=== PATIENT | female | born 1930 | race Caucasian/White ===

== ENCOUNTER 2017-05-12 06:57 | Day surgery (SDC) | payer MEDICARE, BC ==
[2017-05-12] MEDS ORDERED: Propofol 200 MG/20 ML SDV ONE (07:11)
[2017-05-12] MEDS ORDERED: fentaNYL 100 MCG/2 ML SDV ONE (07:11)
[2017-05-12] MEDS ORDERED: Sodium Chloride 0.9% 1,000 ML IV SCH (08:00)
[2017-05-12] MEDS ORDERED: Glycopyrrolate 0.2 MG/ML 2 ML SDV ONE (08:34)
[2017-05-12 11:02] VITALS: BP 135/62
--- NOTE | 2017-05-12 13:33 | PROC ---
DATE OF PROCEDURE: 05/12/2017 INDICATION: Kateryna is an 86-year-old female, who comes in for a colonoscopy. She has been losing weight significantly, cannot gain weight, and she is concerned. She does have a history of cancer of the breast. She has had some change in bowel habits. The risks and benefits were explained to her for the complete colonoscopy with possible biopsy and/or polypectomy. PROCEDURE IN DETAIL: The anesthesia was given by nurse irrigation pump installer. During procedure, used 100 mcg of fentanyl, no Versed was given, and 200 mg of propofol. With a gloved finger, the rectum was examined and there was no obvious pathology noted. The Olympus 180L scope was used. The tube was placed into the rectum and advanced under direct vision. We had a difficult time getting through the first part and the last part in the ascending colon. Multiple times were tried and finally, put on her back from the left lateral position, still unable to get into the cecum. Upon slow retraction of the tube, we noted a polyp at 40 cm. This was biopsied three times. The tube was slowly retracted, no obvious pathology noted in the rectum, and the tube was removed. The patient tolerated the procedure well. PREOPERATIVE DIAGNOSIS: Weight loss. POSTOPERATIVE DIAGNOSIS: Polyp at 40 cm. Biopsy report pending. Leon Narvaez MD /[id number]
== END 2017-05-12 11:20 | disposition home or self-care (01) ==
LOC: JP.SDS 06:57
PROVIDERS: ATTEND Internal Medicine
DX: Z12.11 Encounter for screening for malignant neoplasm of colon (principal); D12.6 Benign neoplasm of colon, unspecified; Z88.8 Allergy status to other drugs, medicaments and biological substances; I10 Essential (primary) hypertension; K21.9 Gastro-esophageal reflux disease without esophagitis; E03.9 Hypothyroidism, unspecified; E78.00 Pure hypercholesterolemia, unspecified; Z88.1 Allergy status to other antibiotic agents; Z88.2 Allergy status to sulfonamides
CPT/HCPCS: 45380; J2704; J3010; J7040; 88305; J3490

== ENCOUNTER 2017-08-30 09:04 | Inpatient (IN) | payer MEDICARE, BC ==
--- NOTE | 2017-08-30 10:01 | CR ---
Chest 2V HISTORY: Pneumonia. COMPARISON: Chest x-ray 08/11/2017. FINDINGS: Increased interstitial change in the perihilar regions as well as lung bases either represe nting edema or inflammatory process. Stable mild cardiomegaly. No acute congestive change or effusion . Surgical clips overlying the left chest. Impression: Increased interstitial change in the representing edema or inflammatory process. Recommend follow-up films to confirm improvement or resolution.
[2017-08-30] MEDS ORDERED: Ondansetron 4 MG Tab.DIS PO PRN (11:45)
[2017-08-30] MEDS ORDERED: Sodium Chloride 0.9% 10 ML Syringe FLUSH PRN (11:45)
[2017-08-30] MEDS ORDERED: Benzonatate 100 MG Cap PO PRN (11:54)
[2017-08-30] MEDS ORDERED: CA CARBONATE PO SCH (12:00)
[2017-08-30] MEDS ORDERED: OMEPRAZOLE MAGNESIUM 20 MG PO SCH (12:00)
[2017-08-30] MEDS ORDERED: Non-Formulary Medication 1 Each (Exemestane [Exemestane] 25 MG) PO SCH (12:00)
[2017-08-30] MEDS ORDERED: [UNRECOGNIZED DRUG - OTHER] PO SCH (12:00)
[2017-08-30] MEDS ORDERED: Non-Formulary Medication 1 Each (Potassium Chloride [Potassium Chloride] 10 MEQ) PO SCH (12:00)
[2017-08-30] MEDS ORDERED: VIT K PO SCH (12:00)
[2017-08-30] MEDS ORDERED: Rivaroxaban 15 MG Tab PO SCH (12:00)
[2017-08-30] MEDS ORDERED: Non-Formulary Medication 1 Each (Rosuvastatin Calcium [Crestor] 10 MG) PO SCH (12:00)
[2017-08-30] MEDS ORDERED: VITAMIN D3 PO SCH (12:00)
--- NOTE | 2017-08-30 12:09 | PCM.HP ---
H&P History of Present Illness - General Date of Service: 08/30/17 Admit Problem/Dx: Admission Diagnosis/Problem Admission Diagnosis/Problem Pneumonia Source of Information: Patient - History of Present Illness Initial Comments - Free Text/Narative: She started coughing yesterday and coughed all night. She has also had a low grade fever and shortness of breath She did not sleep last night as she was coughing and had severe fatigue. She also was wheezing with each deep breath. She has had respiratory problems in the past with a PE. She is so weak that she has a difficult time walking. Onset of Symptoms: Reports: Gradual Duration of Symptoms: Reports: Other (one day) Worsens with: Reports: Rest, Movement Associated Symptoms: Reports: Cough, Fever/Chills, Nausea/Vomiting, Weakness - Related Data Allergies/Adverse Reactions: Allergies Allergy/AdvReac Type Severity Reaction Status Date / Time azithromycin [From Zithromax] Allergy Unknown Cough Verified 05/12/17 07:48 benazepril Allergy Unknown Other Verified 05/12/17 07:48 hydrochlorothiazide Allergy Unknown Itching Verified 05/12/17 07:48 Sulfa (Sulfonamide Allergy Unknown Hives Verified 05/12/17 07:48 Antibiotics) Home Medications: Home Meds Ca Carbonate/Vitamin D3/Vit K [Citracal Soft Chew] 1 each PO BID 09/22/16 [ History] Digoxin [Digox] 125 mcg PO DAILY 09/22/16 [History] Exemestane 25 mg PO DAILY 09/22/16 [History] Levothyroxine Sodium 50 mcg PO DAILY 09/22/16 [History] Omeprazole Magnesium [Prilosec] 20 mg PO DAILY 09/22/16 [History] Potassium Chloride 10 meq PO DAILY 09/22/16 [History] Rosuvastatin Calcium [Crestor] 10 mg PO DAILY 09/22/16 [History] Vitamin E 400 unit PO BEDTIME 09/22/16 [History] Rivaroxaban [Xarelto] 20 mg PO DAILY 11/13/16 [History] Benzonatate 100 mg PO TID PRN 05/09/17 [History] Prolia 60 SQ ASDIRECTED 05/09/17 [History] Past Medical History HEENT History: Reports: Impaired Vision Other HEENT History: Corrected with glasses Cardiovascular History: Reports: Afib, Heart Murmur, High Cholesterol, Hypertension Respiratory History: Reports: Bronchitis, Recurrent, PE, Pneumonia, Recurrent, SOB Gastrointestinal History: Reports: Colon Polyp, GERD CUSTODIAN MANAGER History: Reports: , Other (See Below) Other OB/BYN History: hysterectomy, left ovarian cyst Musculoskeletal History: Reports: Osteoporosis Endocrine/Metabolic History: Reports: Hyperthyroidism, Osteoporosis Hematologic History: Reports: Anemia, B12 Deficiency, Blood Transfusion(s) Oncologic (Cancer) History: Reports: Breast Other Oncologic History: left lumpectomy - Infectious Disease History Infectious Disease History: Reports: Chicken Pox, Measles, Mumps - Past Surgical History HEENT Surgical History: Reports: Cataract Surgery, Tonsillectomy Other HEENT Surgeries/Procedures: Right eye GI Surgical History: Reports: Appendectomy, Colonoscopy Female Surgical History: Reports: Hysterectomy, Salpingo-Oophorectomy, Other (See Below) Other Female Surgeries/Procedures: left breast lumpectomy Endocrine Surgical History: Reports: None Oncologic Surgical History: Reports: Biopsy of Breast, Lumpectomy Other Oncologic Surgeries/Procedures: left breast Nov 2012 Social & Family History - Family History Family Medical History: Noncontributory Cardiac: Reports: Hypertension, [place] Other Cardiac Family History: father of [place] Oncologic: Reports: Pancreatic Other Oncologic Family History: sister - Tobacco Use Smoking Status *Q: Never Smoker Second Hand Smoke Exposure: No - Caffeine Use Caffeine Use: Reports: Coffee Other Caffeine Use: 3 cups per day - Recreational Drug Use Recreational Drug Use: No H&P Review of Systems - Review of Systems: Review Of Systems: See Below General: Reports: Fever, Chills, Weakness HEENT: Reports: Sinus Congestion Pulmonary: Reports: Shortness of Breath, Wheezing, Cough Cardiovascular: Reports: No Symptoms Gastrointestinal: Reports: No Symptoms Genitourinary: Reports: No Symptoms Musculoskeletal: Reports: No Symptoms Skin: Reports: No Symptoms Psychiatric: Reports: No Symptoms Neurological: Reports: No Symptoms Hematologic/Lymphatic: Reports: No Symptoms Immunologic: Reports: No Symptoms Exam - Exam Exam: See Below - Vital Signs Vital Signs: Last Vital Signs Temp 99.5 F 08/30/17 10:53 Pulse 80 08/30/17 10:53 Resp 20 08/30/17 10:53 BP 134/65 08/30/17 10:59 Pulse Ox 92 L 08/30/17 10:59 Weight: 113 lb - Exam General: Alert, Moderate Distress HEENT: PERRLA, Hearing Intact, Mucosa Moist & [place], Nares Patent, Normal Nasal Septum, Posterior Pharynx Clear, Conjunctiva Clear, EOMI, EACs Clear, TMs Clear Neck: Supple, Trachea Midline, 2 Lungs: Normal Respiratory Effort, Wheezing Cardiovascular: Regular Rate, Regular Rhythm GI/Abdominal Exam: Normal Bowel Sounds, Soft, Non-Tender, No Organomegaly, No Distention, No Abnormal Bruit, No Mass Back Exam: Normal Inspection Extremities: Normal Inspection Peripheral Pulses: 1+: Radial (L), Radial (R) Skin: Warm, Dry, Intact Neurological: Cranial Nerves Intact, Reflexes Equal Bilateral Neuro Extensive - Mental Status: Alert, Oriented x3, Normal Mood/Affect, Normal Cognition Neuro Extensive - Motor, Sensory, Reflexes: CN II-XII Intact, Normal Gait, Normal Reflexes DTR: 1+: Bicep (L), Bicep (R) Psychiatric: Alert, Normal Affect, Normal Mood *Q Meaningful Use (ADM) - VTE *Q VTE Criteria *Q: - Stroke *Q Stroke Criteria *Q: - AMI *Q AMI Criteria *Q: Problem List Initiated/Reviewed/Updated: Yes Orders Last 24hrs: Active Orders 24 hr Category Date Time Status Patient Status [ADT] Routine ADT 08/30/17 11:45 Ordered Ambulate [RC] QID Care 08/30/17 11:45 Ordered Ambulate [RC] QID Care 08/30/17 11:45 Ordered Height and Weight [RC] DAILY Care 08/30/17 11:45 Ordered Intake and Output [RC] QSHIFT Care 08/30/17 11:50 Ordered May Shower [RC] ASDIRECTED Care 08/30/17 11:45 Ordered Oxygen Therapy [RC] PRN Care 08/30/17 11:45 Ordered Up ad Lulu [RC] ASDIRECTED Care 08/30/17 11:45 Ordered Up to Chair [RC] QID Care 08/30/17 11:45 Ordered VTE/DVT Education [RC] Per Unit Routine Care 08/30/17 11:45 Ordered Vital Signs [RC] Q4H Care 08/30/17 11:45 Ordered Regular Diet [DIET] Diet 08/30/17 Lunch Ordered CBC WITH AUTO DIFF [HEME] AM Lab 08/31/17 05:11 Ordered CULTURE BLOOD [BC] Urgent Lab 08/30/17 11:53 Ordered CULTURE BLOOD [BC] Urgent Lab 08/30/17 11:53 Ordered CULTURE RESPIRATORY + SMEAR [RM] Stat Lab 08/30/17 11:45 Uncollected Benzonatate [Tessalon Perles] Med 08/30/17 11:54 Ordered 100 mg PO TID PRN Ca Carbonate/Vitamin D3/Vit K [Citracal Soft Chew] Med 08/30/17 12:00 Ordered 1 each PO BID Digoxin [Lanoxin] Med 08/30/17 12:00 Ordered 125 mcg PO DAILY Exemestane [Exemestane] Med 08/30/17 12:00 Ordered 25 mg PO DAILY FLU Vacc [id number](65YR UP)/PF [Fluzone High-Dose 2017- Med 08/31/17 10:00 Once 18] 180 mcg IM ONETIME ONE Levothyroxine [Synthroid] Med 08/30/17 12:00 Ordered 50 mcg PO DAILY Omeprazole Magnesium [Prilosec] Med 08/30/17 12:00 Ordered 20 mg PO DAILY Ondansetron [Zofran ODT] Med 08/30/17 11:45 Ordered 4 mg PO Q4H PRN Potassium Chloride [Potassium Chloride] Med 08/30/17 12:00 Ordered 10 meq PO DAILY Rivaroxaban [Xarelto] Med 08/30/17 12:00 Ordered 20 mg PO DAILY Rosuvastatin Calcium [Crestor] Med 08/30/17 12:00 Ordered 10 mg PO DAILY Sodium Chloride 0.9% [Saline Flush] Med 08/30/17 11:45 Ordered 10 ml FLUSH ASDIRECTED PRN Vitamin E [Vitamin E] Med 08/30/17 21:00 Ordered 400 unit PO BEDTIME Blood Culture x2 Reflex Set [OM.PC] Stat Oth 08/30/17 11:52 Ordered Saline Lock Insert [OM.PC] Routine Oth 08/30/17 11:45 Ordered Resuscitation Status Routine Resus Stat 08/30/17 11:45 Ordered Medication Orders Benzonatate (Tessalon Perles) 100 mg PO TID PRN PRN Reason: Cough Digoxin (Lanoxin) 125 mcg PO DAILY [facility] Levothyroxine Sodium (Synthroid) 50 mcg PO DAILY [facility] Non-Formulary Medication (Ca Carbonate/Vitamin D3/Vit K [Citracal Soft Chew]) 1 each PO BID [facility] Non-Formulary Medication (Exemestane [Exemestane]) 25 mg PO DAILY [facility] Non-Formulary Medication (Omeprazole Magnesium [Prilosec]) 20 mg PO DAILY [facility] Non-Formulary Medication (Potassium Chloride [Potassium Chloride]) 10 meq PO DAILY [facility] Non-Formulary Medication (Rosuvastatin Calcium [Crestor]) 10 mg PO DAILY [facility] Non-Formulary Medication (Vitamin E [Vitamin E]) 400 unit PO BEDTIME [facility] Ondansetron HCl (Zofran Odt) 4 mg PO Q4H PRN PRN Reason: Nausea able to take PO Rivaroxaban (Xarelto) 20 mg PO DAILY [facility] Sodium Chloride (Saline Flush) 10 ml FLUSH ASDIRECTED PRN PRN Reason: Keep Vein Open Assessment/Plan Comment:: Assessment/Plan: #1. Pneumonia: Have admitted her into the hospital and will start antibiotics. #2. Respiratory distress: Her O2 is low and have started her on oxygen. #3. History of breast Ca without mets. #4. History of PE: Continue with xarelto. #5. Hypothyroidism: Continue with medicine.
[2017-08-30] MEDS ORDERED: Rosuvastatin 10 MG Tab PO SCH (13:00)
[2017-08-30] MEDS: Potassium Chloride 10 MEQ Cap.ER PO SCH (13:39)
[2017-08-30] MEDS: Furosemide 20 MG Tab PO SCH (13:40)
[2017-08-30] MEDS: Calcium Carbonate/Vitamin D3 1500 MG-400 Units Tab PO SCH ×2 (13:41→22:10)
[2017-08-30] MEDS: Digoxin 125 MCG Tab PO SCH (13:45)
[2017-08-30] MEDS: cefTRIAXone 1 GM in Sodium Chloride 0.9% 50 ML IV SCH (13:49)
[2017-08-30] MEDS: Levothyroxine 50 MCG Tab PO SCH (13:56)
[2017-08-30] MEDS: Pantoprazole 40 MG Tab.CR PO SCH (13:56)
[2017-08-30] MEDS: Levofloxacin/Dextrose 5%-Water 750 MG in Premix Bag 1 BAG IV SCH (15:18)
[2017-08-30] MEDS: Spironolactone 25 MG Tab PO SCH (17:03)
[2017-08-30] MEDS: Metoprolol Tartrate 50 MG Tab PO SCH ×2 (17:03→22:09)
[2017-08-30] MEDS: Hydrochlorothiazide 12.5 MG Cap PO SCH (17:03)
[2017-08-30] MEDS: Rivaroxaban 10 MG Tab PO SCH (18:04)
[2017-08-30] MEDS: EXEMESTANE PO SCH (18:04)
[2017-08-30] MEDS ORDERED: Non-Formulary Medication 1 Each (Vitamin E [Vitamin E] 400 UNIT) PO SCH (21:00)
[2017-08-30] MEDS: Rosuvastatin 10 MG Tab PO SCH (22:10)
[2017-08-30] MEDS: amLODIPine 5 MG Tab PO SCH (22:11)
[2017-08-30] MEDS: Vitamin E (dl-alpha-tocopherol acetate) 400 Unit Cap PO SCH (22:12)
[2017-08-31] MEDS: Levothyroxine 50 MCG Tab PO SCH (07:28)
[2017-08-31] MEDS: Pantoprazole 40 MG Tab.CR PO SCH (07:35)
[2017-08-31] MEDS: Metoprolol Tartrate 50 MG Tab PO SCH (09:35)
[2017-08-31] MEDS: Furosemide 20 MG Tab PO SCH (09:36)
[2017-08-31] MEDS: EXEMESTANE PO SCH (09:38)
[2017-08-31] MEDS: Calcium Carbonate/Vitamin D3 1500 MG-400 Units Tab PO SCH ×2 (09:40→21:31)
[2017-08-31] MEDS: Potassium Chloride 10 MEQ Cap.ER PO SCH (09:40)
[2017-08-31] MEDS ORDERED: FLU Vacc TS 2017-18 (65yr UP)/PF 180 MCG/0.5 ML Syringe IM ONE (10:00)
--- NOTE | 2017-08-31 11:05 | PCM.PN ---
- General Info Date of Service: 08/31/17 Functional Status: Reports: Pain Controlled - Review of Systems General: Reports: Weakness HEENT: Reports: No Symptoms Pulmonary: Reports: Shortness of Breath, Cough Cardiovascular: Reports: No Symptoms Gastrointestinal: Reports: No Symptoms Genitourinary: Reports: No Symptoms Musculoskeletal: Reports: No Symptoms Skin: Reports: No Symptoms Neurological: Reports: No Symptoms Psychiatric: Reports: No Symptoms - Patient Data Vitals - Most Recent: Last Vital Signs Temp 98.1 F 08/31/17 07:09 Pulse 45 L 08/31/17 09:35 Resp 20 08/31/17 07:09 BP 104/52 L 08/31/17 09:35 Pulse Ox 100 08/31/17 07:09 Weight - Most Recent: 119 lb 9.824 oz I&O - Last 24 Hours: Intake & Output 08/30/17 08/31/17 08/31/17 22:59 06:59 14:59 Intake Total 390 360 Output Total 600 Balance -210 360 Lab Results Last 24 Hours: Laboratory Results - last 24 hr 08/31/17 Range/Units 05:45 WBC 6.8 (4.5-11.0) K/uL RBC 4.03 (3.30-5.50) M/uL Hgb 10.3 L D (12.0-15.0) g/dL Hct 33.4 L (36.0-48.0) % MCV 83 (80-98) fL MCH 26 L (27-31) pg MCHC 31 L (32-36) % Plt Count 149 L (150-400) K/uL Neut % (Auto) 78 H (36-66) % Lymph % (Auto) 11 L (24-44) % Weber % (Auto) 9 H (2-6) % Eos % (Auto) 1 L (2-4) % Baso % (Auto) 1 (0-1) % Med Orders - Current: Current Medications Amlodipine Besylate (Norvasc) 5 mg PO BEDTIME [facility] Last Admin: 08/30/17 22:11 Dose: 5 mg Benzonatate (Tessalon Perles) 100 mg PO TID PRN PRN Reason: Cough Calcium Carbonate (Caltrate 600+D 1500 Mg-400 Units) 1 tab PO BID [facility] Last Admin: 08/31/17 09:40 Dose: 1 tab Digoxin (Lanoxin) 125 mcg PO DAILY@1300 [facility] Last Admin: 08/30/17 13:45 Dose: 125 mcg Furosemide (Lasix) 20 mg PO DAILY [facility] Last Admin: 08/31/17 09:36 Dose: 20 mg Hydrochlorothiazide (Hydrochlorothiazide) 12.5 mg PO DAILY [facility] Last Admin: 08/30/17 17:03 Dose: Not Given Ceftriaxone Sodium 1 gm/ (Sodium Chloride) 50 mls @ 100 mls/hr IV Q24H [facility] Last Admin: 08/30/17 13:49 Dose: 100 mls/hr Levofloxacin/Dextrose 750 mg/ (Premix) 150 mls @ 100 mls/hr IV Q48H [facility] Last Admin: 08/30/17 15:18 Dose: 100 mls/hr Levothyroxine Sodium (Synthroid) 50 mcg PO ACBREAKFAST [facility] Last Admin: 08/31/17 07:28 Dose: 50 mcg Ondansetron HCl (Zofran Odt) 4 mg PO Q4H PRN PRN Reason: Nausea able to take PO Pantoprazole Sodium (Protonix) 40 mg PO ACBREAKFAST [facility] Last Admin: 08/31/17 07:35 Dose: 40 mg Exemestane 5mg (Ptom ()) 0 each PO DAILY [facility] Last Admin: 08/31/17 09:38 Dose: 1 each Potassium Chloride (Potassium Chloride) 10 meq PO DAILY [facility] Last Admin: 08/31/17 09:40 Dose: 10 meq Rivaroxaban (Xarelto) 20 mg PO WITHDINNER [facility] Last Admin: 08/30/17 18:04 Dose: 20 mg Rosuvastatin Calcium (Crestor) 10 mg PO BEDTIME [facility] Last Admin: 08/30/17 22:10 Dose: 10 mg Sodium Chloride (Saline Flush) 10 ml FLUSH ASDIRECTED PRN PRN Reason: Keep Vein Open Spironolactone (Aldactone) 12.5 mg PO DAILY [facility] Last Admin: 08/30/17 17:03 Dose: Not Given Vitamin E (Vitamin E) 400 units PO BEDTIME [facility] Last Admin: 08/30/17 22:12 Dose: 400 units Discontinued Medications Metoprolol Tartrate (Lopressor) 50 mg PO BID [facility] Last Admin: 08/31/17 09:35 Dose: 50 mg Rosuvastatin Calcium (Crestor) 10 mg PO DAILY [facility] Last Admin: 08/30/17 16:57 Dose: Not Given - Exam General: Alert, Oriented HEENT: Pupils Equal, Pupils Reactive, EOMI, Mucous Membr. Moist/[place] Neck: Supple Lungs: Clear to Auscultation, Normal Respiratory Effort Cardiovascular: Regular Rate, Regular Rhythm GI/Abdominal Exam: Normal Bowel Sounds, Soft, Non-Tender, No Organomegaly, No Distention, No Abnormal Bruit, No Mass, Pelvis Stable Back Exam: Normal Inspection, Full Range of Motion Extremities: Normal Inspection, Normal Range of Motion, Non-Tender, No Pedal Edema, Normal Capillary Refill Peripheral Pulses: 1+: Radial (L), Radial (R) Psy/Mental Status: Alert, Normal Affect, Normal Mood - Problem List Review Problem List Initiated/Reviewed/Updated: Yes - My Orders Last 24 Hours: My Active Orders 08/30/17 11:45 Patient Status [ADT] Routine Ambulate [RC] QID Height and Weight [RC] DAILY May Shower [RC] ASDIRECTED Oxygen Therapy [RC] PRN Up ad Lulu [RC] ASDIRECTED Up to Chair [RC] QID VTE/DVT Education [RC] Per Unit Routine Vital Signs [RC] Q4H CULTURE RESPIRATORY + SMEAR [RM] Stat Ondansetron [Zofran ODT] 4 mg PO Q4H PRN Sodium Chloride 0.9% [Saline Flush] 10 ml FLUSH ASDIRECTED PRN Saline Lock Insert [OM.PC] Routine Resuscitation Status Routine 08/30/17 11:50 Intake and Output [RC] QSHIFT 08/30/17 11:52 Blood Culture x2 Reflex Set [OM.PC] Stat 08/30/17 11:54 Benzonatate [Tessalon Perles] 100 mg PO TID PRN 08/30/17 12:00 Levothyroxine [Synthroid] 50 mcg PO ACBREAKFAST 08/30/17 12:08 CULTURE BLOOD [BC] Urgent 08/30/17 12:12 CULTURE BLOOD [BC] Urgent 08/30/17 13:00 Calcium Carbonate/Vitamin D3 [Caltrate 600+D 1500 MG-400 Units] 1 tab PO BID Digoxin [Lanoxin] 125 mcg PO DAILY@1300 Pantoprazole [ProTONIX] 40 mg PO ACBREAKFAST Potassium Chloride 10 meq PO DAILY cefTRIAXone [Rocephin] 1 gm Sodium Chloride 0.9% [Normal Saline] 50 ml IV Q24H 08/30/17 13:21 RT Acapella [RESPCARE] Routine 08/30/17 13:30 Furosemide [Lasix] 20 mg PO DAILY 08/30/17 14:00 Hydrochlorothiazide 12.5 mg PO DAILY Levofloxacin/Dextrose 5%-Water [Levaquin in D5W 750 MG/150 ML] 750 mg Premix Bag 1 bag IV Q48H Spironolactone [Aldactone] 12.5 mg PO DAILY 08/30/17 17:00 Patient's Own Medication [Ptom] 0 each PO DAILY Rivaroxaban [Xarelto] 20 mg PO WITHDINNER 08/30/17 21:00 Rosuvastatin [Crestor] 10 mg PO BEDTIME Vitamin E (dl, acetate) [Vitamin E] 400 units PO BEDTIME amLODIPine [Norvasc] 5 mg PO BEDTIME 08/30/17 Lunch Regular Diet [DIET] - Plan Plan:: Assessment/Plan: #1. Pneumonia: Improving. [place] do a repeat chest x-ray tomorrow. #2. Respiratory distress: Improved with osygen #3. History of breast Ca without mets. #4. History of PE: Continue with xarelto. #5. Hypothyroidism: Continue with medicine. #6. Hypotension: Have stopped Metoprolol.
[2017-08-31] MEDS: Hydrochlorothiazide 12.5 MG Cap PO SCH (12:12)
[2017-08-31] MEDS: Spironolactone 25 MG Tab PO SCH (12:12)
[2017-08-31] MEDS: Digoxin 125 MCG Tab PO SCH (13:29)
[2017-08-31] MEDS: cefTRIAXone 1 GM in Sodium Chloride 0.9% 50 ML IV SCH (13:35)
[2017-08-31] MEDS: Rivaroxaban 10 MG Tab PO SCH (17:51)
[2017-08-31] MEDS: Rosuvastatin 10 MG Tab PO SCH (21:29)
[2017-08-31] MEDS: Vitamin E (dl-alpha-tocopherol acetate) 400 Unit Cap PO SCH (21:30)
[2017-08-31] MEDS: amLODIPine 5 MG Tab PO SCH (21:31)
[2017-09-01] MEDS: Pantoprazole 40 MG Tab.CR PO SCH (07:38)
[2017-09-01] MEDS: Levothyroxine 50 MCG Tab PO SCH (07:38)
[2017-09-01] MEDS: EXEMESTANE PO SCH (09:09)
[2017-09-01] MEDS: Potassium Chloride 10 MEQ Cap.ER PO SCH (09:10)
[2017-09-01] MEDS: Spironolactone 25 MG Tab PO SCH (09:10)
[2017-09-01] MEDS: Hydrochlorothiazide 12.5 MG Cap PO SCH (09:10)
[2017-09-01] MEDS: Calcium Carbonate/Vitamin D3 1500 MG-400 Units Tab PO SCH ×2 (09:10→20:38)
[2017-09-01] MEDS: Furosemide 20 MG Tab PO SCH (09:10)
--- NOTE | 2017-09-01 09:29 | PCM.PN ---
- General Info Date of Service: 09/01/17 - Review of Systems General: Reports: Weakness HEENT: Reports: No Symptoms Pulmonary: Reports: Cough Cardiovascular: Reports: No Symptoms Gastrointestinal: Reports: No Symptoms Genitourinary: Reports: No Symptoms Musculoskeletal: Reports: No Symptoms Skin: Reports: No Symptoms Neurological: Reports: No Symptoms Psychiatric: Reports: No Symptoms - Patient Data Vitals - Most Recent: Last Vital Signs Temp 97.4 F 09/01/17 07:21 Pulse 67 09/01/17 07:21 Resp 16 09/01/17 07:21 BP 132/53 L 09/01/17 07:21 Pulse Ox 92 L 09/01/17 07:21 Weight - Most Recent: 109 lb I&O - Last 24 Hours: Intake & Output 08/31/17 09/01/17 09/01/17 22:59 06:59 14:59 Intake Total 240 1040 Output Total 250 300 Balance -10 740 [facility] Results Last 24 Hours: Microbiology 08/30/17 12:08 Aerobic Blood Culture - Preliminary Blood - Arm, Right NO GROWTH AFTER 1 DAY Anaerobic Blood Culture - Preliminary NO GROWTH AFTER 1 DAY 08/30/17 12:12 Aerobic Blood Culture - Preliminary Blood - Venous NO GROWTH AFTER 1 DAY Anaerobic Blood Culture - Preliminary NO GROWTH AFTER 1 DAY Med Orders - Current: Current Medications Amlodipine Besylate (Norvasc) 5 mg PO BEDTIME [facility] Last Admin: 08/31/17 21:31 Dose: Not Given Benzonatate (Tessalon Perles) 100 mg PO TID PRN PRN Reason: Cough Calcium Carbonate (Caltrate 600+D 1500 Mg-400 Units) 1 tab PO BID [facility] Last Admin: 09/01/17 09:10 Dose: 1 tab Digoxin (Lanoxin) 125 mcg PO DAILY@1300 [facility] Last Admin: 08/31/17 13:29 Dose: Not Given Furosemide (Lasix) 20 mg PO DAILY [facility] Last Admin: 09/01/17 09:10 Dose: 20 mg Hydrochlorothiazide (Hydrochlorothiazide) 12.5 mg PO DAILY [facility] Last Admin: 09/01/17 09:10 Dose: 12.5 mg Ceftriaxone Sodium 1 gm/ (Sodium Chloride) 50 mls @ 100 mls/hr IV Q24H [facility] Last Admin: 08/31/17 13:35 Dose: 100 mls/hr Levofloxacin/Dextrose 750 mg/ (Premix) 150 mls @ 100 mls/hr IV Q48H [facility] Last Admin: 08/30/17 15:18 Dose: 100 mls/hr Levothyroxine Sodium (Synthroid) 50 mcg PO ACBREAKFAST [facility] Last Admin: 09/01/17 07:38 Dose: 50 mcg Ondansetron HCl (Zofran Odt) 4 mg PO Q4H PRN PRN Reason: Nausea able to take PO Pantoprazole Sodium (Protonix) 40 mg PO ACBREAKFAST [facility] Last Admin: 09/01/17 07:38 Dose: 40 mg Exemestane 5mg (Ptom ()) 0 each PO DAILY [facility] Last Admin: 09/01/17 09:09 Dose: 1 each Potassium Chloride (Potassium Chloride) 10 meq PO DAILY [facility] Last Admin: 09/01/17 09:10 Dose: 10 meq Rivaroxaban (Xarelto) 20 mg PO WITHDINNER [facility] Last Admin: 08/31/17 17:51 Dose: 20 mg Rosuvastatin Calcium (Crestor) 10 mg PO BEDTIME [facility] Last Admin: 08/31/17 21:29 Dose: 10 mg Sodium Chloride (Saline Flush) 10 ml FLUSH ASDIRECTED PRN PRN Reason: Keep Vein Open Last Admin: 08/31/17 13:30 Dose: 10 ml Spironolactone (Aldactone) 12.5 mg PO DAILY [facility] Last Admin: 09/01/17 09:10 Dose: 12.5 mg Vitamin E (Vitamin E) 400 units PO BEDTIME [facility] Last Admin: 08/31/17 21:30 Dose: 400 units Discontinued Medications Metoprolol Tartrate (Lopressor) 50 mg PO BID [facility] Last Admin: 08/31/17 09:35 Dose: 50 mg Rosuvastatin Calcium (Crestor) 10 mg PO DAILY [facility] Last Admin: 08/30/17 16:57 Dose: Not Given - Exam General: Alert, Oriented Lungs: Crackles, Wheezing GI/Abdominal Exam: Normal Bowel Sounds, Soft, Non-Tender, No Organomegaly, No Distention, No Abnormal Bruit, No Mass, Pelvis Stable Extremities: Normal Inspection, Normal Range of Motion, Non-Tender, No Pedal Edema, Normal Capillary Refill Peripheral Pulses: 1+: Radial (L), Radial (R) Skin: Warm, Dry, Intact Psy/Mental Status: Alert, Normal Affect, Normal Mood - Problem List Review Problem List Initiated/Reviewed/Updated: Yes - My Orders Last 24 Hours: My Active Orders 09/02/17 05:11 BASIC METABOLIC PANEL,BMP [CHEM] Routine CBC WITH AUTO DIFF [HEME] Routine 09/02/17 08:11 CXR [Chest 2V] [CR] Routine - Plan Plan:: Assessment/Plan: #1. Pneumonia: Improving. Chest x-ray tomorrow. #2. Respiratory distress: Improved with oxygen O2 sat 92% on room air. #3. History of breast Ca without mets. #4. History of PE: Continue with xarelto. #5. Hypothyroidism: Continue with medicine. #6. Hypotension: Have stopped Metoprolol. Also held Amlodipine yesterday evening as BP was low.
[2017-09-01] MEDS: cefTRIAXone 1 GM in Sodium Chloride 0.9% 50 ML IV SCH (13:13)
[2017-09-01] MEDS: Digoxin 125 MCG Tab PO SCH (13:21)
[2017-09-01] MEDS: Levofloxacin/Dextrose 5%-Water 750 MG in Premix Bag 1 BAG IV SCH (14:50)
[2017-09-01] MEDS: Rivaroxaban 10 MG Tab PO SCH (16:40)
[2017-09-01] MEDS: amLODIPine 5 MG Tab PO SCH (20:38)
[2017-09-01] MEDS: Vitamin E (dl-alpha-tocopherol acetate) 400 Unit Cap PO SCH (20:38)
[2017-09-01] MEDS: Rosuvastatin 10 MG Tab PO SCH (20:38)
[2017-09-02] MEDS: Levothyroxine 50 MCG Tab PO SCH (07:27)
[2017-09-02] MEDS: Pantoprazole 40 MG Tab.CR PO SCH (07:27)
--- NOTE | 2017-09-02 09:08 | CR ---
Chest 2V HISTORY: pneumonia FINDINGS: Interstitial edema/infiltrates have resolved since the exam of 08/30/2017. Lungs now appear clear and normally aerated. Cardiomediastinal silhouette is within normal limits. Atherosclerotic aor ta is redemonstrated. No vascular redistribution or pleural fluid is seen. Surgical clips overlie the left mid chest anteriorly. IMPRESSION: Interval resolution of pulmonary infiltrates/edema. No acute chest abnormality is identif ied on today's exam.
[2017-09-02] MEDS: Spironolactone 25 MG Tab PO SCH (09:18)
[2017-09-02] MEDS: Furosemide 20 MG Tab PO SCH (09:20)
[2017-09-02] MEDS: Calcium Carbonate/Vitamin D3 1500 MG-400 Units Tab PO SCH (09:20)
[2017-09-02] MEDS: Hydrochlorothiazide 12.5 MG Cap PO SCH (09:20)
[2017-09-02] MEDS: Potassium Chloride 10 MEQ Cap.ER PO SCH (09:21)
[2017-09-02] MEDS: EXEMESTANE PO SCH (09:21)
[2017-09-02] MEDS ORDERED: Potassium Chloride 20 MEQ Tab.ER PO ONE (10:00)
[2017-09-02 11:07] VITALS: BP 121/65
--- NOTE | 2017-09-02 11:43 | PCM.PN ---
- General Info Date of Service: 09/02/17 Functional Status: Reports: Pain Controlled - Review of Systems General: Reports: No Symptoms HEENT: Reports: No Symptoms Pulmonary: Reports: No Symptoms Cardiovascular: Reports: No Symptoms Gastrointestinal: Reports: No Symptoms Musculoskeletal: Reports: No Symptoms Neurological: Reports: No Symptoms Psychiatric: Reports: No Symptoms - Patient Data Vitals - Most Recent: Last Vital Signs Temp 98.8 F 09/02/17 11:05 Pulse 93 09/02/17 11:05 Resp 19 09/02/17 11:05 BP 121/65 09/02/17 11:05 Pulse Ox 96 09/02/17 11:05 Weight - Most Recent: 106 lb 4.8 oz I&O - Last 24 Hours: Intake & Output 09/01/17 09/02/17 09/02/17 22:59 06:59 14:59 Intake Total 150 Output Total 1200 650 250 Balance -1200 -650 -100 Lab Results Last 24 Hours: Laboratory Results - last 24 hr 09/02/17 09/02/17 Range/Units 05:36 05:36 WBC 4.7 (4.5-11.0) K/uL RBC 4.66 (3.30-5.50) M/uL Hgb 12.0 (12.0-15.0) g/dL Hct 38.4 (36.0-48.0) % MCV 82 (80-98) fL MCH 26 L (27-31) pg MCHC 31 L (32-36) % Plt Count 188 (150-400) K/uL Neut % (Auto) 54 (36-66) % Lymph % (Auto) 31 (24-44) % [place] % (Auto) 9 H (2-6) % Eos % (Auto) 5 H (2-4) % Baso % (Auto) 2 H (0-1) % Sodium 138 L (140-148) mmol/L Potassium 3.2 L (3.6-5.2) mmol/L Chloride 100 (100-108) mmol/L Carbon Dioxide 30 (21-32) mmol/L Anion Gap 11.2 (5.0-14.0) mmol/L BUN 17 (7-18) mg/dL Creatinine 0.9 (0.6-1.0) mg/dL Est Cr Clr Drug Dosing 34.15 mL/min Estimated GFR (MDRD) 59 L (>60) Glucose 98 (74-106) mg/dL Calcium 9.4 (8.5-10.1) mg/dL [place]ius Results Last 24 Hours: Microbiology 08/30/17 12:08 Aerobic Blood Culture - Preliminary Blood - Arm, Right NO GROWTH AFTER 2 DAYS Anaerobic Blood Culture - Preliminary NO GROWTH AFTER 2 DAYS 08/30/17 12:12 Aerobic Blood Culture - Preliminary Blood - Venous NO GROWTH AFTER 2 DAYS Anaerobic Blood Culture - Preliminary NO GROWTH AFTER 2 DAYS Med Orders - Current: Current Medications Amlodipine Besylate (Norvasc) 5 mg PO BEDTIME [facility] Last Admin: 09/01/17 20:38 Dose: 5 mg Benzonatate (Tessalon Perles) 100 mg PO TID PRN PRN Reason: Cough Calcium Carbonate (Caltrate 600+D 1500 Mg-400 Units) 1 tab PO BID [facility] Last Admin: 09/02/17 09:20 Dose: 1 tab Digoxin (Lanoxin) 125 mcg PO DAILY@1300 [facility] Last Admin: 09/01/17 13:21 Dose: 125 mcg Furosemide (Lasix) 20 mg PO DAILY [facility] Last Admin: 09/02/17 09:20 Dose: 20 mg Hydrochlorothiazide (Hydrochlorothiazide) 12.5 mg PO DAILY [facility] Last Admin: 09/02/17 09:20 Dose: 12.5 mg Ceftriaxone Sodium 1 gm/ (Sodium Chloride) 50 mls @ 100 mls/hr IV Q24H [facility] Last Admin: 09/01/17 13:13 Dose: 100 mls/hr Levofloxacin/Dextrose 750 mg/ (Premix) 150 mls @ 100 mls/hr IV Q48H [facility] Last Admin: 09/01/17 14:50 Dose: 100 mls/hr Levothyroxine Sodium (Synthroid) 50 mcg PO ACBREAKFAST [facility] Last Admin: 09/02/17 07:27 Dose: 50 mcg Ondansetron HCl (Zofran Odt) 4 mg PO Q4H PRN PRN Reason: Nausea able to take PO Pantoprazole Sodium (Protonix) 40 mg PO ACBREAKFAST [facility] Last Admin: 09/02/17 07:27 Dose: 40 mg Exemestane 5mg (Ptom ()) 0 each PO DAILY [facility] Last Admin: 09/02/17 09:21 Dose: 1 each Potassium Chloride (Potassium Chloride) 10 meq PO DAILY [facility] Last Admin: 10/06/17 09:21 Dose: 10 meq Rivaroxaban (Xarelto) 20 mg PO WITHDINNER [facility] Last Admin: 09/01/17 16:40 Dose: 20 mg Rosuvastatin Calcium (Crestor) 10 mg PO BEDTIME [facility] Last Admin: 09/01/17 20:38 Dose: 10 mg Sodium Chloride (Saline Flush) 10 ml FLUSH ASDIRECTED PRN PRN Reason: Keep Vein Open Last Admin: 08/31/17 13:30 Dose: 10 ml Spironolactone (Aldactone) 12.5 mg PO DAILY [facility] Last Admin: 09/02/17 09:18 Dose: 12.5 mg Vitamin E (Vitamin E) 400 units PO BEDTIME [facility] Last Admin: 09/01/17 20:38 Dose: 400 units Discontinued Medications Metoprolol Tartrate (Lopressor) 50 mg PO BID [facility] Last Admin: 08/31/17 09:35 Dose: 50 mg Potassium Chloride (Klor-Con M20) 40 meq PO ONETIME ONE Stop: 09/02/17 10:01 Last Admin: 09/02/17 11:30 Dose: 40 meq Rosuvastatin Calcium (Crestor) 10 mg PO DAILY [facility] Last Admin: 08/30/17 16:57 Dose: Not Given - Exam General: Alert, Oriented HEENT: Pupils Equal, Pupils Reactive, EOMI, Mucous Membr. Moist/[place] Neck: Supple Lungs: Crackles Cardiovascular: Irregular Rhythm GI/Abdominal Exam: Normal Bowel Sounds, Soft, Non-Tender, No Organomegaly, No Distention, No Abnormal Bruit, No Mass, Pelvis Stable (Female) Exam: Normal External Exam, Normal Speculum Exam, Normal Bimanual Exam Back Exam: Normal Inspection, Full Range of Motion Extremities: Normal Inspection, Normal Range of Motion, Non-Tender, No Pedal Edema, Normal Capillary Refill Peripheral Pulses: 1+: Radial (L), Radial (R) Skin: Warm, Dry, Intact Psy/Mental Status: Alert, Normal Affect, Normal Mood - Problem List Review Problem List Initiated/Reviewed/Updated: Yes - Plan Plan:: Assessment/Plan: #1. Pneumonia: Improving. Chest x-ray normal. #2. Respiratory distress: No needs of O2 at home Her rest O2 was at 97% and exercise O2 was 92%. #3. History of breast Ca without mets. #4. History of PE: Continue with xarelto. #5. Hypothyroidism: Continue with medicine. #6. Hypotension: Have stopped Metoprolol. Also held Amlodipine yesterday evening as BP was low. Plan to discharge home today.
--- NOTE | 2017-09-02 11:56 | PCM.DCSUM1 ---
Discharge Summary - Hospital Course Brief History: She started coughing the day before admission and coughed all night. She has also had a low grade fever and shortness of breath She did not sleep the night before admission as she was coughing and had severe fatigue. She also was wheezing with each deep breath. She has had respiratory problems in the past with a PE. She is so weak that she has a difficult time walking. - Discharge Data Discharge Date: 09/02/17 Discharge Disposition: Home, Self-Care 01 Condition: Good - Patient Summary/Data Hospital Course: She was placed on Rocephin and Levaquin and made good improvement while in the hospital. Her O2 was 80% upon admission and 90's at time of discharge. They chest s-ray was normal at the time of discharge. - Patient Instructions Diet: Heart Healthy Diet Activity: As Tolerated - Discharge Plan Home Medications: Home Meds Ca Carbonate/Vitamin D3/Vit K [Citracal Soft Chew] 1 each PO BID 09/22/16 [ History] Digoxin [Digox] 125 mcg PO DAILY 09/22/16 [History] Exemestane 25 mg PO DAILY 09/22/16 [History] Levothyroxine Sodium 50 mcg PO DAILY 09/22/16 [History] Omeprazole Magnesium [Prilosec] 20 mg PO DAILY 09/22/16 [History] Potassium Chloride 10 meq PO DAILY 09/22/16 [History] Rosuvastatin Calcium [Crestor] 10 mg PO BEDTIME 09/22/16 [History] Vitamin E 400 unit PO BEDTIME 09/22/16 [History] Rivaroxaban [Xarelto] 20 mg PO DAILY 11/13/16 [History] Benzonatate 100 mg PO TID PRN 05/09/17 [History] Prolia 60 SQ ASDIRECTED 05/09/17 [History] Furosemide [Lasix] 20 mg PO DAILY 08/30/17 [History] Metoprolol Tartrate 50 mg PO BID 08/30/17 [History] Spironolact/Hydrochlorothiazid [Aldactazide 25-25] 0.5 tab PO DAILY 08/30/17 [ History] Umeclidinium Brm/Vilanterol Tr [Anoro Ellipta 62.5-25 Mcg INH] 1 each IH DAILY 08/30/17 [History] amLODIPine [Norvasc] 5 mg PO BEDTIME 08/30/17 [History] - Patient Data Vitals - Most Recent: Last Vital Signs Temp 98.8 F 09/02/17 11:05 Pulse 93 09/02/17 11:05 Resp 19 09/02/17 11:05 BP 121/65 09/02/17 11:05 Pulse Ox 96 09/02/17 11:05 Weight - Most Recent: 106 lb 4.8 oz I&O - Last 24 hours: Intake & Output 09/01/17 09/02/17 09/02/17 22:59 06:59 14:59 Intake Total 150 Output Total 1200 650 250 Balance -1200 -650 -100 Lab Results - Last 24 hrs: Laboratory Results - last 24 hr 09/02/17 09/02/17 Range/Units 05:36 05:36 WBC 4.7 (4.5-11.0) K/uL RBC 4.66 (3.30-5.50) M/uL Hgb 12.0 (12.0-15.0) g/dL Hct 38.4 (36.0-48.0) % MCV 82 (80-98) fL MCH 26 L (27-31) pg MCHC 31 L (32-36) % Plt Count 188 (150-400) K/uL Neut % (Auto) 54 (36-66) % Lymph % (Auto) 31 (24-44) % [place] % (Auto) 9 H (2-6) % Eos % (Auto) 5 H (2-4) % Baso % (Auto) 2 H (0-1) % Sodium 138 L (140-148) mmol/L Potassium 3.2 L (3.6-5.2) mmol/L Chloride 100 (100-108) mmol/L Carbon Dioxide 30 (21-32) mmol/L Anion Gap 11.2 (5.0-14.0) mmol/L BUN 17 (7-18) mg/dL Creatinine 0.9 (0.6-1.0) mg/dL Est Cr Clr Drug Dosing 34.15 mL/min Estimated GFR (MDRD) 59 L (>60) Glucose 98 (74-106) mg/dL Calcium 9.4 (8.5-10.1) mg/dL [place]IKA Results - Last 24 hrs: Microbiology 08/30/17 12:08 Aerobic Blood Culture - Preliminary Blood - Arm, Right NO GROWTH AFTER 2 DAYS Anaerobic Blood Culture - Preliminary NO GROWTH AFTER 2 DAYS 08/30/17 12:12 Aerobic Blood Culture - Preliminary Blood - Venous NO GROWTH AFTER 2 DAYS Anaerobic Blood Culture - Preliminary NO GROWTH AFTER 2 DAYS Med Orders - Current: Current Medications Amlodipine Besylate (Norvasc) 5 mg PO BEDTIME [facility] Last Admin: 09/01/17 20:38 Dose: 5 mg Benzonatate (Tessalon Perles) 100 mg PO TID PRN PRN Reason: Cough Calcium Carbonate (Caltrate 600+D 1500 Mg-400 Units) 1 tab PO BID [facility] Last Admin: 09/02/17 09:20 Dose: 1 tab Digoxin (Lanoxin) 125 mcg PO DAILY@1300 [facility] Last Admin: 09/01/17 13:21 Dose: 125 mcg Furosemide (Lasix) 20 mg PO DAILY [facility] Last Admin: 09/02/17 09:20 Dose: 20 mg Hydrochlorothiazide (Hydrochlorothiazide) 12.5 mg PO DAILY [facility] Last Admin: 09/02/17 09:20 Dose: 12.5 mg Ceftriaxone Sodium 1 gm/ (Sodium Chloride) 50 mls @ 100 mls/hr IV Q24H [facility] Last Admin: 09/01/17 13:13 Dose: 100 mls/hr Levofloxacin/Dextrose 750 mg/ (Premix) 150 mls @ 100 mls/hr IV Q48H [facility] Last Admin: 09/01/17 14:50 Dose: 100 mls/hr Levothyroxine Sodium (Synthroid) 50 mcg PO ACBREAKFAST [facility] Last Admin: 09/02/17 07:27 Dose: 50 mcg Ondansetron HCl (Zofran Odt) 4 mg PO Q4H PRN PRN Reason: Nausea able to take PO Pantoprazole Sodium (Protonix) 40 mg PO ACBREAKFAST [facility] Last Admin: 09/02/17 07:27 Dose: 40 mg Exemestane 5mg (Ptom ()) 0 each PO DAILY [facility] Last Admin: 09/02/17 09:21 Dose: 1 each Potassium Chloride (Potassium Chloride) 10 meq PO DAILY [facility] Last Admin: 09/02/17 09:21 Dose: 10 meq Rivaroxaban (Xarelto) 20 mg PO WITHDINNER [facility] Last Admin: 09/01/17 16:40 Dose: 20 mg Rosuvastatin Calcium (Crestor) 10 mg PO BEDTIME [facility] Last Admin: 10/05/17 20:38 Dose: 10 mg Sodium Chloride (Saline Flush) 10 ml FLUSH ASDIRECTED PRN PRN Reason: Keep Vein Open Last Admin: 08/31/17 13:30 Dose: 10 ml Spironolactone (Aldactone) 12.5 mg PO DAILY [facility] Last Admin: 09/02/17 09:18 Dose: 12.5 mg Vitamin E (Vitamin E) 400 units PO BEDTIME [facility] Last Admin: 09/01/17 20:38 Dose: 400 units Discontinued Medications Influenza Virus Vaccine (Fluzone High-Dose ) 180 mcg IM ONETIME ONE Stop: 08/31/17 10:01 Last Admin: 08/31/17 10:25 Dose: 180 mcg Metoprolol Tartrate (Lopressor) 50 mg PO BID [facility] Last Admin: 08/31/17 09:35 Dose: 50 mg Potassium Chloride (Klor-Con M20) 40 meq PO ONETIME ONE Stop: 09/02/17 10:01 Last Admin: 09/02/17 11:30 Dose: 40 meq Rosuvastatin Calcium (Crestor) 10 mg PO DAILY [facility] Last Admin: 08/30/17 16:57 Dose: Not Given *Q Meaningful Use (DIS) - VTE *Q VTE Criteria *Q: - Stroke *Q Stroke Criteria *Q: - AMI *Q AMI Criteria *Q:
[2017-09-02] MEDS: Digoxin 125 MCG Tab PO SCH (12:19)
[2017-09-02] MEDS: cefTRIAXone 1 GM in Sodium Chloride 0.9% 50 ML IV SCH (12:20)
== END 2017-09-02 14:46 | disposition home or self-care (01) | DRG 195 ==
LOC: JP.DI 09:04 → JP.MS 10:42 → UNDOADMIN 10:42 → JP.MS 11:59 → UNDODISIN 09-02 14:46
PROVIDERS: ADMIT Internal Medicine; ATTEND Internal Medicine
DX: J18.9 Pneumonia, unspecified organism (principal); I48.91 Unspecified atrial fibrillation; I10 Essential (primary) hypertension; Z79.01 Long term (current) use of anticoagulants; Z86.711 Personal history of pulmonary embolism; Z87.01 Personal history of pneumonia (recurrent); R05 Cough; R06.02 Shortness of breath; R50.9 Fever, unspecified; Z23 Encounter for immunization; I95.9 Hypotension, unspecified; M81.0 Age-related osteoporosis without current pathological fracture; K21.9 Gastro-esophageal reflux disease without esophagitis; E78.00 Pure hypercholesterolemia, unspecified; H54.7 Unspecified visual loss; Z88.1 Allergy status to other antibiotic agents; Z88.2 Allergy status to sulfonamides; Z88.8 Allergy status to other drugs, medicaments and biological substances; E03.9 Hypothyroidism, unspecified; Z85.3 Personal history of malignant neoplasm of breast
CPT/HCPCS: 36415; 71020; 71020-26; 80048; 85025; 87040; 90662; 94667; A9270-GY; G0008; J0696; J1956; J7050

== ENCOUNTER 2017-10-22 22:15 | Emergency (ER) | payer MEDICARE, BC ==
[2017-10-22 22:46] VITALS: BP 146/62
[2017-10-22] MEDS ORDERED: Albuterol/Ipratropium 3.0-0.5 MG/3 ML Neb Soln NEB ONE (23:35)
--- NOTE | 2017-10-22 23:39 | EDM.PDOC ---
ED HPI GENERAL MEDICAL PROBLEM - General Chief Complaint: Respiratory Problem Stated Complaint: pneumonia Time Seen by Provider: 10/22/17 22:40 Source of Information: Reports: Patient, RN Notes Reviewed History Limitations: Reports: No Limitations - History of Present Illness INITIAL COMMENTS - FREE TEXT/NARRATIVE: 86-year-old female presents emergency department day complaint of shortness of breath, she states it began about 2 days ago has had fevers the breathing difficulty has progressively gotten worse she is having a cough does not produce much sputum and she is wheezing normally does not wear oxygen was found to be hypoxic upon admission to the emergency department chest Pain Score (Numeric/FACES): 2 - Related Data Allergies Allergy/AdvReac Type Severity Reaction Status Date / Time azithromycin [From Zithromax] Allergy Unknown Cough Verified 10/22/17 23:01 benazepril Allergy Unknown Other Verified 10/22/17 23:01 Sulfa (Sulfonamide Allergy Unknown Hives Verified 10/22/17 23:01 Antibiotics) Home Meds: Home Meds Ca Carbonate/Vitamin D3/Vit K [Citracal Soft Chew] 1 each PO BID 09/22/16 [ History] Digoxin [Digox] 125 mcg PO DAILY 09/22/16 [History] Exemestane 25 mg PO DAILY 09/22/16 [History] Levothyroxine Sodium 50 mcg PO DAILY 09/22/16 [History] Omeprazole Magnesium [Prilosec] 20 mg PO DAILY 09/22/16 [History] Potassium Chloride 10 meq PO DAILY 09/22/16 [History] Rosuvastatin Calcium [Crestor] 10 mg PO BEDTIME 09/22/16 [History] Vitamin E 400 unit PO BEDTIME 09/22/16 [History] Rivaroxaban [Xarelto] 20 mg PO DAILY 11/13/16 [History] Benzonatate 100 mg PO TID PRN 05/09/17 [History] Prolia 60 SQ ASDIRECTED 05/09/17 [History] Furosemide [Lasix] 20 mg PO DAILY 08/30/17 [History] Metoprolol Tartrate 50 mg PO BID 08/30/17 [History] Spironolact/Hydrochlorothiazid [Aldactazide 25-25] 0.5 tab PO DAILY 08/30/17 [ History] Umeclidinium Brm/Vilanterol Tr [Anoro Ellipta 62.5-25 Mcg INH] 1 each IH DAILY 08/30/17 [History] amLODIPine [Norvasc] 5 mg PO BEDTIME 08/30/17 [History] Past Medical History HEENT History: Reports: Impaired Vision Other HEENT History: Corrected with glasses Cardiovascular History: Reports: Afib, Heart Murmur, High Cholesterol, Hypertension Respiratory History: Reports: Bronchitis, Recurrent, PE, Pneumonia, Recurrent, SOB Gastrointestinal History: Reports: Colon Polyp, GERD [employer] WORKER History: Reports: , Other (See Below) Other OB/BYN History: hysterectomy, left ovarian cyst Musculoskeletal History: Reports: Osteoporosis Endocrine/Metabolic History: Reports: Hyperthyroidism, Osteoporosis Hematologic History: Reports: Anemia, B12 Deficiency, Blood Transfusion(s) Oncologic (Cancer) History: Reports: Breast Other Oncologic History: left lumpectomy - Infectious Disease History Infectious Disease History: Reports: Chicken Pox, Measles, Mumps - Past Surgical History HEENT Surgical History: Reports: Cataract Surgery, Tonsillectomy Other HEENT Surgeries/Procedures: Right eye GI Surgical History: Reports: Appendectomy, Colonoscopy Female Surgical History: Reports: Hysterectomy, Salpingo-Oophorectomy, Other (See Below) Other Female Surgeries/Procedures: left breast lumpectomy Endocrine Surgical History: Reports: None Oncologic Surgical History: Reports: Biopsy of Breast, Lumpectomy Other Oncologic Surgeries/Procedures: left breast Nov 2012 Social & Family History - Family History Family Medical History: Noncontributory Cardiac: Reports: Hypertension, [place] Other Cardiac Family History: father of [place] Oncologic: Reports: Pancreatic Other Oncologic Family History: sister - Tobacco Use Smoking Status *Q: Never Smoker Second Hand Smoke Exposure: No - Caffeine Use Caffeine Use: Reports: Coffee Other Caffeine Use: 3 cups per day - Recreational Drug Use Recreational Drug Use: No ED ROS GENERAL - Review of Systems Review Of Systems: See Below Constitutional: Reports: Fever, Chills HEENT: Reports: No Symptoms Respiratory: Reports: Shortness of Breath, Wheezing, Cough. Denies: Sputum Cardiovascular: Reports: No Symptoms GI/Abdominal: Reports: No Symptoms : Reports: No Symptoms Musculoskeletal: Reports: No Symptoms Skin: Reports: No Symptoms ED EXAM, GENERAL - Physical Exam Exam: See Below Free Text/Narrative:: General: Female, not in any distress, alert and oriented x3 HEENT: head is atraumatic normocephalic, eyes pupils equal round reactive to light, sclera clear no conjunctivitis appreciated. Ears tympanic membranes clear and pastor landmarks and light reflex are present bilaterally canals are clear. Nose no septal deviation, nares are clear, no blood present. Mouth mucosa is moist and pink no erythema or exudate noted in soft palate, tongue is midline uvula is midline, dentition is intact. Neck: Supple no thyromegaly no tracheal deviation. Nodes: Cervical nodes subclavicular nodes nontender no palpable lymphadenopathy noted. Lungs: Expiratory wheeze mid to lower lung gordon bilaterally CV: Irregularly irregular rate and rhythm S1 and S2 appreciated no murmurs rubs or gallops noted. Abdomen: Soft, nontender, no palpable masses or organomegaly appreciated, no distention no guarding bowel sounds are present, . Neuro: Cranial nerves II through XII grossly intact Skin: Warm and dry, intact Extremities: No lower extremity edema appreciated, . Course - Vital Signs Last Recorded V/S: Last Vital Signs Temp 99.4 F 10/22/17 23:17 Pulse 81 10/22/17 23:17 Resp 20 10/22/17 23:17 BP 146/62 H 10/22/17 23:17 Pulse Ox 96 10/22/17 23:17 - Orders/Labs/Meds Orders: Active Orders 24 hr Category Date Time Status RT Aerosol Therapy [RC] ASDIRECTED Care 10/22/17 23:35 Active Chest 2V [CR] Urgent Exams 10/22/17 23:34 Taken Labs: Laboratory Tests 10/22/17 10/22/17 10/22/17 Range/Units 23:44 23:44 23:44 WBC 8.6 (4.5-11.0) K/uL RBC 4.20 (3.30-5.50) M/uL Hgb 10.9 L (12.0-15.0) g/dL Hct 34.9 L (36.0-48.0) % MCV 83 (80-98) fL MCH 26 L (27-31) pg MCHC 31 L (32-36) % Plt Count 163 (150-400) K/uL Neut % (Auto) 82 H (36-66) % Lymph % (Auto) 10 L (24-44) % [place] % (Auto) 7 H (2-6) % Eos % (Auto) 1 L (2-4) % Baso % (Auto) 1 (0-1) % Sodium 141 (140-148) mmol/L Potassium 3.7 (3.6-5.2) mmol/L Chloride 103 (100-108) mmol/L Carbon Dioxide 26 (21-32) mmol/L Anion Gap 11.9 (5.0-14.0) mmol/L BUN 23 H (7-18) mg/dL Creatinine 1.0 (0.6-1.0) mg/dL Est Cr Clr Drug Dosing 31.81 mL/min Estimated GFR (MDRD) 53 L (>60) Glucose 111 H (74-106) mg/dL Lactic Acid 1.6 (0.4-2.0) mmol/L Calcium 8.8 (8.5-10.1) mg/dL Total Bilirubin 1.7 H (0.2-1.0) mg/dL AST 29 (15-37) U/L ALT 24 (12-78) U/L Alkaline Phosphatase 69 (46-116) U/L Troponin I 0.017 (0.000-0.056) ng/mL Total Protein 7.5 (6.4-8.2) g/dL Albumin 3.5 (3.4-5.0) g/dL Globulin 4.0 H (2.3-3.5) g/dL Albumin/Globulin Ratio 0.9 L (1.2-2.2) Meds: Medications Discontinued Medications Generic Name Dose Route Start Last Admin Trade Name Freq PRN Reason Stop Dose Admin Albuterol/Ipratropium 3 ml 10/22/17 23:35 10/22/17 23:49 Duoneb 3.0-0.5 Mg/3 Ml NEB 10/22/17 23:36 3 ml ONETIME ONE Administration Departure - Departure Time of Disposition: 01:14 Disposition: Home, Self-Care 01 Condition: Good Clinical Impression: Bronchitis - Discharge Information Referrals: Leon Narvaez Sr, MD [Primary Care Provider] - Forms: ED Department Discharge Additional Instructions: Take full course of antibiotics Please followup with your primary care provider in 3-5 days if not better, please call return to the emergency department with worsening of symptoms. - My Orders Last 24 Hours: My Active Orders 10/22/17 23:34 Chest 2V [CR] Urgent 10/22/17 23:35 RT Aerosol Therapy [RC] ASDIRECTED - Assessment/Plan Last 24 Hours: My Active Orders 10/22/17 23:34 Chest 2V [CR] Urgent 10/22/17 23:35 RT Aerosol Therapy [RC] ASDIRECTED Plan: Assessment Acuity = acute Site and laterality = bronchitis Etiology = probable bacterial cause Manifestations = none Location of injury = Home Lab values = hemoglobin low at 10.9 consistent with normochromic anemia bilirubin elevated 1.7 consistent hyperbilirubinemia, chest x-ray I did review films myself I cannot appreciate any acute process, the official read from radiology is pending Plan I did review lab work and chest x-ray results with her we are able to remove her oxygen she however consistently around 90 would dip down to 88 however with a deep breath responded back up to 91-92, talked about options including hospitalization however she declined would prefer to try outpatient treatment first placed on Levaquin 500 mg daily 7 days follow-up with primary care in 3- 5 days for reevaluation if not better Patient was in agreement with the plan all questions were answered, they were instructed to return to the emergency department or call for worsening symptoms. This note was dictated using [employer] voice recognition software please call with any questions.
--- NOTE | 2017-10-24 09:11 | CR ---
2 view chest Comparison: 02 September 2017. Findings: There is mild cardiac enlargement. There is mild vascular engorgement. There is mild promin ence of the basilar interstitial markings. There are no alveolar infiltrates or effusions. There is c hronic fibrosis in the left lung base. Impression: 1. Findings suggestive of mild CHF.
== END 2017-10-23 01:30 | disposition home or self-care (01) ==
LOC: JP.ED 22:15
DX: J40 Bronchitis, not specified as acute or chronic (principal); Z88.2 Allergy status to sulfonamides; Z88.8 Allergy status to other drugs, medicaments and biological substances; Z88.1 Allergy status to other antibiotic agents; Z79.899 Other long term (current) drug therapy
CPT/HCPCS: 36415; 71020; 80053; 83605; 84484; 85025; 87804; 94640; 99284; J7620; 99283

== ENCOUNTER → 2018-05-18 | Day surgery (SDC) | payer MEDICARE, BC ==
[~2018-05-18] MED LIST: Propofol 200 MG/20 ML SDV ONE; Sodium Chloride 0.9% 1,000 ML IV SCH
[2018-05-18 09:36] VITALS: BP 106/72
--- NOTE | 2018-05-18 12:20 | PROC ---
DATE OF PROCEDURE: 05/18/2018 INDICATIONS: Kateryna is an 87-year-old female, who comes in for a screening colonoscopy. The risks and benefits were explained to the patient and was taken to the OR. DESCRIPTION OF PROCEDURE: Anesthesia was given by nurse adult education instructor. The Olympus 180L scope was used, it was placed into the rectum and after examination of the rectum with a gloved finger. The tube was placed into the rectum and advanced under direct vision. We did get to the ascending colon and was unable to get to the cecum. Upon retraction of the tube, we noted a small polyp which was biopsied in the transverse colon. The remainder of the colon was unremarkable. No abnormality was noted. The tube was removed and the patient tolerated the procedure well. PREOPERATIVE DIAGNOSIS: Screening colonoscopy. POSTOPERATIVE DIAGNOSIS: Unable to get to the cecum, so from the mid ascending to the rectum was closely evaluated. There was a 3 mm polyp noted at the mid transverse colon. This was biopsied. The pathology report is pending. Leon Narvaez MD /[id number]
== END ==
LOC: JP.SDS 06:31
PROVIDERS: ATTEND Internal Medicine
DX: Z12.11 Encounter for screening for malignant neoplasm of colon (principal); D12.3 Benign neoplasm of transverse colon; I11.0 Hypertensive heart disease with heart failure; I50.9 Heart failure, unspecified; J44.9 Chronic obstructive pulmonary disease, unspecified; E78.5 Hyperlipidemia, unspecified; E03.9 Hypothyroidism, unspecified; K21.9 Gastro-esophageal reflux disease without esophagitis; Z86.010 Personal history of colon polyps
CPT/HCPCS: 45380; J2704; J7030; 88305

== ENCOUNTER 2019-07-15 08:53 | Emergency (ER) | payer MEDICARE, BC ==
[2019-07-15 09:15] VITALS: BP 143/64; PULSE 106
--- NOTE | 2019-07-15 09:31 | EDM.PDOC ---
ED HPI GENERAL MEDICAL PROBLEM - General Chief Complaint: Cardiovascular Problem Stated Complaint: RAPID RESPITATIONS Time Seen by Provider: 07/15/19 09:25 Source of Information: Reports: Patient History Limitations: Reports: No Limitations - History of Present Illness INITIAL COMMENTS - FREE TEXT/NARRATIVE: 88-year-old female was taking her vitals at home and found her pulse to be over 100 which worried her. She's had some significant weight loss over the past several months for an unknown reason, and recently weaned off of metoprolol. No increased shortness of breath, chest pain, nausea vomiting, diarrhea or other complaints. Onset: Unknown/Unsure Associated Symptoms: Reports: Other (Other than gradual chronic weight loss, patient feels fine) - Related Data Allergies Allergy/AdvReac Type Severity Reaction Status Date / Time azithromycin [From Zithromax] Allergy Unknown Cough Verified 07/15/19 09:31 benazepril Allergy Unknown Other Verified 07/15/19 09:31 Sulfa (Sulfonamide Allergy Unknown Hives Verified 07/15/19 09:31 Antibiotics) hydrochlorothiazide Allergy Hives Verified 07/15/19 09:31 Home Meds: Home Meds Exemestane 25 mg PO DAILY 09/22/16 [History] Levothyroxine Sodium 50 mcg PO DAILY 09/22/16 [History] Rivaroxaban [Xarelto] 20 mg PO DAILY 11/13/16 [History] Prolia 60 units SQ ASDIRECTED 05/09/17 [History] Spironolact/Hydrochlorothiazid [Aldactazide 25-25] 0.5 tab PO DAILY 08/30/17 [ History] Umeclidinium Brm/Vilanterol Tr [Anoro Ellipta 62.5-25 MCG] 1 each IH DAILY 08/30 [History] amLODIPine [Norvasc] 5 mg PO BEDTIME 08/30/17 [History] Calcium Citrate/Vitamin D3 [Citracal + D Maximum Caplet] 400 mg PO BID 05/16/18 [History] Cholecalciferol (Vitamin D3) [Vitamin D3] 2,000 unit PO DAILY 05/16/18 [History] Iron,Carbonyl/Ascorbic Acid [Vitron-C Tablet] 1 tab PO DAILY 07/15/19 [History] Lutein 1 tab PO BID 07/15/19 [History] Past Medical History HEENT History: Reports: Impaired Vision Other HEENT History: Corrected with glasses Cardiovascular History: Reports: Afib, Heart Murmur, High Cholesterol, Hypertension Respiratory History: Reports: Bronchitis, Recurrent, PE, Pneumonia, Recurrent, SOB Gastrointestinal History: Reports: Colon Polyp, GERD [employer] History: Reports: , Other (See Below) Other [employer] History: hysterectomy, left ovarian cyst Musculoskeletal History: Reports: Osteoporosis Endocrine/Metabolic History: Reports: Hyperthyroidism, Osteoporosis Hematologic History: Reports: Anemia, B12 Deficiency, Blood Transfusion(s), Iron Deficiency Oncologic (Cancer) History: Reports: Breast Other Oncologic History: left lumpectomy - Infectious Disease History Infectious Disease History: Reports: Chicken Pox, Mumps, Pertussis (Whooping Cough) - Past Surgical History HEENT Surgical History: Reports: Adenoidectomy, Cataract Surgery, Tonsillectomy Other HEENT Surgeries/Procedures: Right eye GI Surgical History: Reports: Appendectomy, Colonoscopy Female Surgical History: Reports: Hysterectomy, Salpingo-Oophorectomy, Other (See Below) Other Female Surgeries/Procedures: left breast lumpectomy Oncologic Surgical History: Reports: Biopsy of Breast, Lumpectomy Other Oncologic Surgeries/Procedures: left breast Nov 2012 Social & Family History - Family History Family Medical History: Noncontributory Cardiac: Reports: Hypertension, [place] Other Cardiac Family History: father of [place] Oncologic: Reports: Pancreatic Other Oncologic Family History: sister - Tobacco Use Smoking Status *Q: Never Smoker - Caffeine Use Caffeine Use: Reports: Coffee Other Caffeine Use: 3 cups per day - Recreational Drug Use Recreational Drug Use: No ED ROS GENERAL - Review of Systems Review Of Systems: See Below Constitutional: Denies: Fever, Chills, Malaise Respiratory: Denies: Shortness of Breath Cardiovascular: Denies: Chest Pain GI/Abdominal: Denies: Abdominal Pain, Nausea, Vomiting Skin: Denies: Bruising Neurological: Denies: Headache ED EXAM, GENERAL - Physical Exam Exam: See Below Exam Limited By: No Limitations General Appearance: Alert, No Apparent Distress Head: Atraumatic Respiratory/Chest: No Respiratory Distress, Wheezing (A few scattered expiratory wheezes are heard) Cardiovascular: Irregularly Irregular GI/Abdominal: Non-Tender Extremities: Normal Inspection. No: Pedal Edema Neurological: Alert, Oriented Psychiatric: Normal Affect, Normal Mood Skin Exam: Warm, Dry Course - Vital Signs Last Recorded V/S: Last Vital Signs Temp 97.6 F 07/15/19 09:26 Pulse 106 H 07/15/19 09:26 Resp 22 H 07/15/19 09:26 BP 143/64 H 07/15/19 09:26 Pulse Ox 91 L 07/15/19 09:26 - Re-Assessments/Exams Free Text/Narrative Re-Assessment/Exam: 07/15/19 09:51 Patient was kept on cardiac monitoring for 20 minutes, remained in atrial fibrillation with fairly frequent PVCs, rate was 95-110. I think she would benefit from restarting low-dose metoprolol 25 mg twice a day, this was discussed with her primary provider Dr. Narvaez. She'll recheck with him later this week. No further workup is needed, she is having extensive testing for weight loss including a recent CT scan of the abdomen. Departure - Departure Time of Disposition: 10:08 Disposition: Home, Self-Care 01 Condition: Good Clinical Impression: Chronic atrial fibrillation with RVR Instructions: Atrial Fibrillation, [id number] Referrals: Leon Narvaez Sr, MD [Primary Care Provider] - Forms: ED Department Discharge Care Plan Goals: Restart metoprolol at 25 mg twice daily or one half pill twice daily. Consider calling Dr. Narvaez this week to discuss any needed rechecks or other advice.
== END 2019-07-15 10:08 | disposition home or self-care (01) ==
LOC: JP.ED 08:53
DX: I48.2 Chronic atrial fibrillation (principal); I10 Essential (primary) hypertension; E05.90 Thyrotoxicosis, unspecified without thyrotoxic crisis or storm; Z86.711 Personal history of pulmonary embolism; Z88.1 Allergy status to other antibiotic agents; Z88.2 Allergy status to sulfonamides; Z88.8 Allergy status to other drugs, medicaments and biological substances; Z79.899 Other long term (current) drug therapy
CPT/HCPCS: 99283; 99284

== ENCOUNTER 2019-10-22 04:43 | Emergency (ER) | payer MEDICARE, BC ==
[2019-10-22] MEDS ORDERED: Aspirin 81 MG Tab.Chew PO ONE (04:49)
[2019-10-22 04:58] VITALS: PULSE 61
--- NOTE | 2019-10-22 05:33 | EDM.PDOC ---
<London Tse - Last Filed: 10/22/19 09:06> ED HPI GENERAL MEDICAL PROBLEM - General Chief Complaint: Chest Pain Stated Complaint: PAIN UNDER LEFT ARM PIT Time Seen by Provider: 10/22/19 05:27 - Related Data Allergies Allergy/AdvReac Type Severity Reaction Status Date / Time azithromycin [From Zithromax] Allergy Unknown Cough Verified 10/22/19 04:58 benazepril Allergy Unknown Other Verified 10/22/19 04:58 Sulfa (Sulfonamide Allergy Unknown Hives Verified 10/22/19 04:58 Antibiotics) hydrochlorothiazide Allergy Hives Verified 10/22/19 04:58 Home Meds: Home Meds Exemestane 25 mg PO DAILY 09/22/16 [History] Levothyroxine Sodium 50 mcg PO DAILY 09/22/16 [History] Rivaroxaban [Xarelto] 20 mg PO DAILY 11/13/16 [History] Prolia 60 units SQ ASDIRECTED 05/09/17 [History] Umeclidinium Brm/Vilanterol Tr [Anoro Ellipta 62.5-25 MCG] 1 each IH DAILY 08/30 [History] Calcium Citrate/Vitamin D3 [Citracal + D Maximum Caplet] 400 mg PO BID 05/16/18 [History] Cholecalciferol (Vitamin D3) [Vitamin D3] 2,000 unit PO DAILY 05/16/18 [History] Iron,Carbonyl/Ascorbic Acid [Vitron-C Tablet] 1 tab PO DAILY 07/15/19 [History] Lutein 1 tab PO BID 07/15/19 [History] Metoprolol Tartrate [Lopressor] 25 mg PO BID 10/22/19 [History] ED EXAM, GENERAL - Physical Exam Exam: See Below Course - Vital Signs Last Recorded V/S: Last Vital Signs Temp 36.1 C 10/22/19 04:55 Pulse 61 10/22/19 04:55 Resp 22 H 10/22/19 05:50 BP 135/87 10/22/19 05:50 Pulse Ox 92 L 10/22/19 05:50 - Orders/Labs/Meds Labs: Laboratory Tests 10/22/19 10/22/19 10/22/19 Range/Units 04:55 04:55 04:55 WBC 6.1 (4.5-11.0) K/uL RBC 4.53 (3.30-5.50) M/uL Hgb 15.0 (12.0-15.0) g/dL Hct 43.8 (36.0-48.0) % MCV 97 (80-98) fL MCH 33 H (27-31) pg MCHC 34 (32-36) % Plt Count 128 L (150-400) K/uL Neut % (Auto) 64 (36-66) % Lymph % (Auto) 23 L (24-44) % Boyd % (Auto) 10 H (2-6) % Eos % (Auto) 2 (2-4) % Baso % (Auto) 1 (0-1) % Sodium 135 L (140-148) mmol/L Potassium 3.6 (3.6-5.2) mmol/L Chloride 97 L (100-108) mmol/L Carbon Dioxide 28 (21-32) mmol/L Anion Gap 13.6 (5.0-14.0) mmol/L BUN 32 H (7-18) mg/dL Creatinine 1.0 (0.6-1.0) mg/dL Est Cr Clr Drug Dosing 26.45 mL/min Estimated GFR (MDRD) 52 L (>60) Glucose 113 H (74-106) mg/dL Calcium 10.2 H D (8.5-10.1) mg/dL Total Bilirubin 2.5 H (0.2-1.0) mg/dL AST 52 H D (15-37) U/L ALT 48 D (12-78) U/L Alkaline Phosphatase 84 (46-116) U/L Troponin I 0.063 H* (0.000-0.056) ng/mL C-Reactive Protein (0.0-0.3) mg/dL NT-Pro-B Natriuret Pep (5-450) pg/mL Total Protein 7.4 (6.4-8.2) g/dL Albumin 3.5 (3.4-5.0) g/dL Globulin 3.9 H (2.3-3.5) g/dL Albumin/Globulin Ratio 0.9 L (1.2-2.2) 10/22/19 10/22/19 Range/Units 05:40 06:24 WBC (4.5-11.0) K/uL RBC (3.30-5.50) M/uL Hgb (12.0-15.0) g/dL Hct (36.0-48.0) % MCV (80-98) fL MCH (27-31) pg MCHC (32-36) % Plt Count (150-400) K/uL Neut % (Auto) (36-66) % Lymph % (Auto) (24-44) % Boyd % (Auto) (2-6) % Eos % (Auto) (2-4) % Baso % (Auto) (0-1) % Sodium (140-148) mmol/L Potassium (3.6-5.2) mmol/L Chloride (100-108) mmol/L Carbon Dioxide (21-32) mmol/L Anion Gap (5.0-14.0) mmol/L BUN (7-18) mg/dL Creatinine (0.6-1.0) mg/dL Est Cr Clr Drug Dosing mL/min Estimated GFR (MDRD) (>60) Glucose (74-106) mg/dL Calcium (8.5-10.1) mg/dL Total Bilirubin (0.2-1.0) mg/dL AST (15-37) U/L ALT (12-78) U/L Alkaline Phosphatase (46-116) U/L Troponin I 0.079 H* (0.000-0.056) ng/mL C-Reactive Protein 1.00 H (0.0-0.3) mg/dL NT-Pro-B Natriuret Pep 88134 H (5-450) pg/mL Total Protein (6.4-8.2) g/dL Albumin (3.4-5.0) g/dL Globulin (2.3-3.5) g/dL Albumin/Globulin Ratio (1.2-2.2) Meds: Medications Discontinued Medications Generic Name Dose Route Start Last Admin Trade Name Freq PRN Reason Stop Dose Admin Aspirin 324 mg 10/22/19 04:49 Aspirin PO 10/22/19 04:50 ONETIME ONE Sodium Chloride 1,000 mls @ 300 mls/hr 10/22/19 05:45 10/22/19 06:43 Normal Saline IV 300 mls/hr ASDIRECTED JUVENTINO Administration Sodium Chloride 75 mls @ 3 mls/sec 10/22/19 06:12 10/22/19 06:24 Normal Saline IV 10/22/19 06:13 3 mls/sec ASDIRECTED STA Administration Iopamidol 100 ml 10/22/19 06:12 10/22/19 06:23 Isovue-300 (61%) IV 10/22/19 06:13 100 ml . DIRECTED STA Administration Sodium Chloride 10 ml 10/22/19 05:39 10/22/19 05:49 Saline Flush FLUSH 10 ml ASDIRECTED PRN Administration Keep Vein Open - Re-Assessments/Exams Free Text/Narrative Re-Assessment/Exam: 10/22/19 08:10 Patient care turned over from Dr. Cuenca. CT scan of the chest showed stable changes, nothing acute. Repeat troponin was just slightly higher than her first , likely not statistically significant. Results were discussed both with the patient and with Dr. Narvaez, her primary provider. She would like to go home if possible, her neighbor is going to provide a walker for assistance and we scheduled her for an echocardiogram with results sent to Dr. Narvaez. If she is worsening she can return anytime. Departure - Departure Time of Disposition: 08:31 Disposition: Home, Self-Care 01 Clinical Impression: Weakness, Atypical chest pain Instructions: Nonspecific Chest Pain, Erfi-er-Asoy Referrals: Leon Narvaez Sr, MD [Primary Care Provider] - Forms: ED Department Discharge Care Plan Goals: Continue current medications, activity as tolerated and return anytime if you feel you are worsening or develop other concerns. <JoellenAnnie - Last Filed: 10/25/19 08:06> ED HPI GENERAL MEDICAL PROBLEM - General Source of Information: Reports: Patient History Limitations: Reports: No Limitations - History of Present Illness INITIAL COMMENTS - FREE TEXT/NARRATIVE: pt arrived with discomfort in her left axilla. She describes this as burning in nature. She has a past history of breast Ca and had a lumpectomy and radiation in 2013. She has had increased sob. She did recently have a cat scan of her abdoman pelvis that was neg. She is scheduled for a cat scan of the chest today. She has lost about 25 lbs in the last year. Onset: Today, Other ( the burniong chest pain in the axilla. ) Duration: Hour(s): Location: Reports: Chest Associated Symptoms: Reports: Chest Pain, Other (pain in the axilla on the left. She has sig weight loss. ) chest pain Pain Score (Numeric/FACES): 5 Past Medical History HEENT History: Reports: Impaired Vision Other HEENT History: Corrected with glasses Cardiovascular History: Reports: Afib, Heart Murmur, High Cholesterol, Hypertension Respiratory History: Reports: Bronchitis, Recurrent, PE, Pneumonia, Recurrent, SOB Gastrointestinal History: Reports: Colon Polyp, GERD [employer] History: Reports: , Other (See Below) Other [employer] History: hysterectomy, left ovarian cyst Musculoskeletal History: Reports: Osteoporosis Endocrine/Metabolic History: Reports: Hypothyroidism, Osteoporosis Hematologic History: Reports: Anemia, Anticoagulation Therapy, B12 Deficiency, Blood Transfusion(s), Iron Deficiency Oncologic (Cancer) History: Reports: Breast Other Oncologic History: left lumpectomy - Infectious Disease History Infectious Disease History: Reports: Chicken Pox, Mumps, Pertussis (Whooping Cough) - Past Surgical History Head Surgeries/Procedures: Reports: None HEENT Surgical History: Reports: Adenoidectomy, Cataract Surgery, Tonsillectomy Other HEENT Surgeries/Procedures: Right eye GI Surgical History: Reports: Appendectomy, Colonoscopy Female Surgical History: Reports: Hysterectomy, Salpingo-Oophorectomy, Other (See Below) Other Female Surgeries/Procedures: left breast lumpectomy Oncologic Surgical History: Reports: Biopsy of Breast, Lumpectomy Other Oncologic Surgeries/Procedures: left breast Nov 2012 Dermatological Surgical History: Reports: None Social & Family History - Family History Family Medical History: Noncontributory Cardiac: Reports: Hypertension, [place] Other Cardiac Family History: father of [place] Oncologic: Reports: Pancreatic Other Oncologic Family History: sister - Tobacco Use Smoking Status *Q: Never Smoker - Caffeine Use Caffeine Use: Reports: None Other Caffeine Use: 3 cups per day - Recreational Drug Use Recreational Drug Use: No ED ROS GENERAL - Review of Systems Review Of Systems: See Below Constitutional: Reports: No Symptoms HEENT: Reports: No Symptoms Respiratory: Reports: Shortness of Breath, Other ( weakness. ) Cardiovascular: Reports: Chest Pain Endocrine: Reports: No Symptoms GI/Abdominal: Reports: No Symptoms : Reports: No Symptoms Musculoskeletal: Reports: No Symptoms Skin: Reports: No Symptoms Neurological: Reports: No Symptoms ED EXAM, GENERAL - Physical Exam Free Text/Narrative:: pt is a very pale appearing pt . She has lost alot of weight and she has noted a change in her skin color. Exam Limited By: No Limitations General Appearance: Alert, Anxious, Moderate Distress, Other (pupils are equal and reactive. ) Ears: Normal TMs Nose: Normal Inspection Throat/Mouth: Normal Inspection Head: Atraumatic Neck: Normal Inspection Respiratory/Chest: Decreased Breath Sounds Cardiovascular: Regular Rate, Rhythm GI/Abdominal: Soft, Non-Tender (Female) Exam: Deferred Rectal (Female) Exam: Deferred Extremities: Normal Inspection Neurological: Alert, Oriented, Normal Cognition Psychiatric: Anxious Course - Re-Assessments/Exams Free Text/Narrative Re-Assessment/Exam: 10/22/19 06:53 pt appears jaundiced and she has a bilirubin at 2.5. She has a elevated trop at .063. A repeat trop will be drawn at 7 fifteen. She had a cat of the chest. She already had one ordered for today so it was done at this time. She had a GFR of 52 so a small amount of fluid is being run after the contrast. Her liver enzymes are mildly elevated. In she had a cat scan of the abdoman pelvis which was not remarkable. 10/22/19 07:01 pt has a elevated crp. Her bnp is elevated.
[2019-10-22] MEDS ORDERED: Sodium Chloride 0.9% 10 ML Syringe FLUSH PRN (05:39)
[2019-10-22] MEDS ORDERED: Sodium Chloride 0.9% 1,000 ML IV SCH (05:45)
[2019-10-22 05:51] VITALS: BP 135/87
[2019-10-22] MEDS ORDERED: Iopamidol 612 MG/ML 100 ML Bottle IV STA (06:12)
[2019-10-22] MEDS ORDERED: Sodium Chloride 0.9% 75 ML IV STA (06:12)
--- NOTE | 2019-10-22 07:22 | CRLCT ---
INDICATION: Shortness of breath; left-sided chest pain. COMPARISON: CT chest without intravenous contrast September 13, 2018 ; CT abdomen and pelvis with intravenous contrast July 03, 2019. TECHNIQUE: CT chest with intravenous contrast; coronal and sagittal reformats. FINDINGS: No CT evidence of acute or chronic pulmonary thromboembolism. Enlarged central pulmonary arteries; rule out pulmonary hypertension. The main pulmonary artery is measuring 35 mm, the right pulmonary artery is measuring 26 mm and the left pulmonary arteries measuring 23 mm in diameter. Enlarged cardiac silhouette without any evidence of pericardial effusion. Evidence of elevated right heart pressure with reflux of contrast into the inferior vena cava and hepatic veins. Stable interstitial pulmonary fibrosis left lung. No discrete abnormal intra pulmonary nodular densities are identified . Diffuse ground-glass opacities both lungs; no interval change. Stable appearing tiny 2-3 mm subpleural noncalcified nodular densities right upper lobe and right middle lobe without any interval change . IMPRESSION: 1. No evidence of pulmonary thromboembolism. 2. No evidence of aortic aneurysm or dissection. 3. Enlarged cardiac silhouette with evidence of elevated right heart pressures with reflux of contrast into the inferior vena cava and hepatic veins. 4. Interstitial pulmonary fibrosis left lung; rule out radiation induced pulmonary parenchymal changes; stable in appearance. 5. Stable appearing subpleural noncalcified nodules right middle lobe and right lower lobe. Please note that all CT scans at this facility use dose modulation, iterative reconstruction, and/or weight-based dosing when appropriate to reduce radiation dose to as low as reasonably achievable. Dictated by Heather Abdi MD @ Oct 22 2019 7:12AM Signed by Dr. Heather Abdi @ Oct 22 2019 7:20AM
== END 2019-10-22 08:31 | disposition home or self-care (01) ==
LOC: JP.ED 04:43
DX: R53.1 Weakness (principal); R07.89 Other chest pain; I48.91 Unspecified atrial fibrillation; E78.5 Hyperlipidemia, unspecified; I10 Essential (primary) hypertension; E03.9 Hypothyroidism, unspecified; Z88.1 Allergy status to other antibiotic agents; Z88.8 Allergy status to other drugs, medicaments and biological substances; Z88.2 Allergy status to sulfonamides; Z86.711 Personal history of pulmonary embolism; Z79.01 Long term (current) use of anticoagulants; Z79.890 Hormone replacement therapy; Z79.899 Other long term (current) drug therapy
CPT/HCPCS: 36415; 71260; 80053; 83880; 84484; 85025; 86140; 93005; 96360; 96361; 99284; 99285; J7030; Q9967